=== PATIENT | male | born 1985 | race Caucasian/White ===

== ENCOUNTER 2017-10-29 03:11 | Emergency (ER) | payer MEDICAID, OTHER ==
[~2017-10-29] VITALS: Ht 170.2 cm; Wt 111.0 kg
[~2017-10-29 03:11] MED LIST: OXYC-150 PO
[2017-10-29 03:13] VITALS: BP 157/102
[2017-10-29] MEDS ORDERED: morphine 4 MG/ML inj SYRINge IM ONE (03:35)
[2017-10-29] MEDS ORDERED: ondansetron/PF 4mg/2ml inj IM ONE (03:35)
[2017-10-29] MEDS ORDERED: ketorolac trometh inj. 60 MG/2 ML VIAL IM ONE (03:35)
[2017-10-29] MEDS ORDERED: IBUP-1984 PO (04:13)
== END 2017-10-29 04:29 | disposition home or self-care (01) ==
LOC: ER 03:11
DX: M62.830 Muscle spasm of back (principal); F17.200 Nicotine dependence, unspecified, uncomplicated; Z98.890 Other specified postprocedural states; Z88.5 Allergy status to narcotic agent; Z79.899 Other long term (current) drug therapy
CPT/HCPCS: 96372; 99284; J1885; J2270; J2405

== ENCOUNTER 2019-01-21 18:57 | Emergency (ER) | payer MEDICAID ==
[~2019-01-21] VITALS: Ht 170.2 cm; Wt 109.0 kg
[2019-01-21 19:03] VITALS: BP 176/86
== END 2019-01-21 20:40 | disposition home or self-care (01) ==
LOC: ER 18:58
DX: M54.5 Low back pain (principal); G89.29 Other chronic pain; M25.571 Pain in right ankle and joints of right foot; Z98.890 Other specified postprocedural states; Z88.5 Allergy status to narcotic agent; Z79.899 Other long term (current) drug therapy
CPT/HCPCS: 99281